=== PATIENT | male | born 1950 | race Caucasian/White ===

== ENCOUNTER 2018-02-02 14:00 | Emergency (ER) | payer MEDICAID, MEDICARE ==
[2018-02-02] MEDS ORDERED: Sodium Chloride 0.9% 1,000 ML IV SCH (16:00)
[2018-02-02] MEDS ORDERED: Sodium Chloride 0.9% 10 ML Syringe FLUSH ONE (16:09)
[2018-02-02] MEDS ORDERED: Sodium Chloride 0.9% 80 ML IV ONE (16:09)
[2018-02-02] MEDS ORDERED: Iopamidol 612 MG/ML 150 ML Bottle IV SCH ×2 (16:15→17:00)
[2018-02-02] MEDS ORDERED: diphenhydrAMINE 50 MG/ML SDV IVPUSH ONE (16:35)
[2018-02-02] MEDS ORDERED: Sodium Chloride 0.9% 10 ML Syringe FLUSH PRN (16:55)
[2018-02-02] MEDS ORDERED: Sodium Chloride 0.9% 80 ML IV SCH (17:00)
--- NOTE | 2018-02-02 19:06 | EDM.PDOC ---
ED HPI GENERAL MEDICAL PROBLEM - General Chief Complaint: General Stated Complaint: ELEVATED LIVER ENZYMES Time Seen by Provider: 02/02/18 15:00 Source of Information: Reports: Patient, Family History Limitations: Reports: No Limitations - History of Present Illness INITIAL COMMENTS - FREE TEXT/NARRATIVE: 67-year-old male who is been having worsening jaundice and elevated liver enzymes for the past several weeks. He was found to have elevated enzymes on a routine laboratory check for medication refills. This was followed by an ultrasound of the gallbladder which was nonspecific. His enzymes were rechecked several days ago and they were continuing to elevate, his bilirubin is up to 8.1. He is scheduled for an MRCP in 3 days but because of the elevated enzymes he was sent to the emergency room. The patient has no symptoms, and interestingly he had a similar episode 10 years ago where nothing was found. He is very anxious about an MRI, he is claustrophobic. Onset: Gradual Severity: Moderate Associated Symptoms: Reports: No Other Symptoms Denies Pain Score (Numeric/FACES): 0 - Related Data Allergies Allergy/AdvReac Type Severity Reaction Status Date / Time lisinopril Allergy Itching Verified 02/02/18 14:45 Penicillins Allergy Rash Verified 02/02/18 14:45 statins Allergy Muscle Uncoded 02/02/18 14:45 Aches xray dye Allergy Itching Uncoded 02/02/18 14:45 Home Meds: Home Meds Aspirin [Lo-Dose Aspirin EC] 81 mg PO DAILY 02/02/18 [History] Losartan [Cozaar] 25 mg PO DAILY 02/02/18 [History] Omeprazole 1 tab PO DAILY 02/02/18 [History] amLODIPine [Norvasc] 5 mg PO DAILY 02/02/18 [History] Past Medical History HEENT History: Reports: Impaired Vision Cardiovascular History: Reports: High Cholesterol, Hypertension Gastrointestinal History: Reports: GERD, Other (See Below) Other Gastrointestinal History: reflux Musculoskeletal History: Reports: Fracture Endocrine/Metabolic History: Reports: Diabetes, Type II, Obesity/BMI 30+ Dermatologic History: Reports: Eczema - Infectious Disease History Infectious Disease History: Reports: Chicken Pox Social & Family History - Tobacco Use Smoking Status *Q: Current Every Day Smoker Years of Tobacco use: 50 Packs/Tins Daily: 1.5 Used Tobacco, but Quit: No - Caffeine Use Caffeine Use: Reports: Coffee, Soda - Alcohol Use Days Per Week of Alcohol Use: 3 Number of Drinks Per Day: 4 Total Drinks Per Week: 12 - Recreational Drug Use Recreational Drug Use: No ED ROS GENERAL - Review of Systems Review Of Systems: See Below Constitutional: Denies: Fever, Chills, Malaise Respiratory: Denies: Shortness of Breath Cardiovascular: Denies: Chest Pain GI/Abdominal: Reports: Other (Denies weight loss). Denies: Abdominal Pain, Anorexia, Decreased Appetite, Nausea, Vomiting : Reports: Other (Urine is dark) Skin: Reports: Jaundice Neurological: Reports: No Symptoms ED EXAM, GENERAL - Physical Exam Exam: See Below Exam Limited By: No Limitations General Appearance: Alert, No Apparent Distress Eye Exam: Bilateral Eye: Other (Scleral icterus is present) Respiratory/Chest: No Respiratory Distress, Lungs Clear Cardiovascular: Regular Rate, Rhythm GI/Abdominal: Non-Tender. No: Hepatomegaly Extremities: Normal Inspection. No: Pedal Edema Neurological: Alert, Oriented, No Motor/Sensory Deficits Psychiatric: Normal Affect, Normal Mood Skin Exam: Warm, Dry, Jaundice Course - Vital Signs Last Recorded V/S: Last Vital Signs Temp 97.3 F 02/02/18 15:00 Pulse 70 02/02/18 17:22 Resp 18 02/02/18 17:22 BP 142/78 H 02/02/18 17:22 Pulse Ox 98 02/02/18 17:22 - Orders/Labs/Meds Orders: Active Orders 24 hr Category Date Time Status Abdomen Pelvis w Cont [CT] Stat Exams 02/02/18 15:55 Taken Meds: Medications Discontinued Medications Generic Name Dose Route Start Last Admin Trade Name Merlyn PRN Reason Stop Dose Admin Diphenhydramine HCl 25 mg 02/02/18 16:35 02/02/18 16:45 Benadryl IVPUSH 02/02/18 16:36 25 mg ONETIME ONE Administration Sodium Chloride 1,000 mls @ 1,000 mls/hr 02/02/18 16:00 02/02/18 16:21 Normal Saline IV 1,000 mls/hr ASDIRECTED ENRIQUE Administration Sodium Chloride 80 mls @ 3.5 mls/sec 02/02/18 16:09 02/02/18 17:11 Normal Saline IV 02/02/18 16:10 3.5 mls/sec ONETIME ONE Administration Sodium Chloride 80 mls @ 3 mls/sec 02/02/18 17:00 Normal Saline IV ASDIRECTED ENRIQUE Iopamidol 150 ml 02/02/18 16:15 02/02/18 17:11 Isovue-300 (61%) IV 02/02/18 16:16 150 ml . DIRECTED ENRIQUE Administration Iopamidol 150 ml 02/02/18 17:00 Isovue-300 (61%) IV . DIRECTED ENRIQUE Sodium Chloride 10 ml 02/02/18 16:09 02/02/18 17:11 Saline Flush FLUSH 02/02/18 16:10 10 ml ONETIME ONE Administration Sodium Chloride 10 ml 02/02/18 16:55 Saline Flush FLUSH ASDIRECTED PRN Keep Vein Open - Re-Assessments/Exams Free Text/Narrative Re-Assessment/Exam: 02/03/18 10:35 Labs were not redrawn. A CT of the abdomen and pelvis with IV contrast was obtained and showed no specific reason for the biliary obstruction. I discussed the findings with gastroenterology in [place], they're going to call the patient in the next 48 hours to try to move up his MRCP as well as his gastroenterology consultation. Departure - Departure Time of Disposition: 19:11 Disposition: Home, Self-Care 01 Condition: Fair Clinical Impression: Jaundice - Discharge Information Instructions: Jaundice, Adult, [id number] Referrals: Zoey Morel PA [Primary Care Provider] - Forms: ED Department Discharge Care Plan Goals: You will be receiving a phone call from the gastroenterology Department in [place] within the next few days for further instructions. - My Orders Last 24 Hours: My Active Orders 02/02/18 15:55 Abdomen Pelvis w Cont [CT] Stat - Assessment/Plan Last 24 Hours: My Active Orders 02/02/18 15:55 Abdomen Pelvis w Cont [CT] Stat
== END 2018-02-02 19:11 | disposition home or self-care (01) ==
LOC: JP.ED 14:00
DX: R17 Unspecified jaundice (principal); E11.9 Type 2 diabetes mellitus without complications; I10 Essential (primary) hypertension; F17.210 Nicotine dependence, cigarettes, uncomplicated; E78.00 Pure hypercholesterolemia, unspecified; K21.9 Gastro-esophageal reflux disease without esophagitis; Z79.899 Other long term (current) drug therapy; Z79.82 Long term (current) use of aspirin; Z88.8 Allergy status to other drugs, medicaments and biological substances; Z88.0 Allergy status to penicillin; Z91.041 Radiographic dye allergy status
CPT/HCPCS: 74177; 96361; 96374; 99285; J1200; J7030; J7050